=== PATIENT | female | born 1970 | race Caucasian/White ===

== ENCOUNTER → 2023-08-30 15:00 | Outpatient (CLI) | payer OTHER, SELFPAY ==
--- NOTE | 2023-08-30 15:04 | DI.NM.S_ITS ---
PROCEDURE: NM EXERCISE TREADMILL NON NUC COMPARISON: None INDICATIONS: Chest pain FINDINGS: Rest ECG sinus rhythm. Timothy protocol 10:45, maximum heart rate 155 bpm (93% peak predicted), maximum blood pressure 154/74, 12.8 METS, GARY -40%. Exercise ECG sinus tachycardia no ST segment changes or arrhythmia. The patient did not complain of exercise-induced chest discomfort. IMPRESSION: Low risk study. No evidence of exercise-induced ischemia or arrhythmia. Normal hemodynamic response. Very good exercise capacity. Dictated by: Toña Mayen D.O. on 08/30/2023 at 16:15 Approved by: Toña Mayen D.O. on 08/30/2023 at 16:18
== END ==
PROVIDERS: Referring Provider Internal Medicine; Visit Provider Internal Medicine
DX: R07.9 Chest pain, unspecified (principal)
CPT/HCPCS: 93017